=== PATIENT | male | born 1965 | race Caucasian/White ===

== ENCOUNTER 2022-07-13 11:11 | Day surgery (SDC) | payer OTHER ==
[2022-07-13] MEDS ORDERED: Sodium Chloride 0.9(Preservative Free) 10 ML IJ ONE (11:12)
[2022-07-13] MEDS ORDERED: Depo-Medrol 40 MG/ML IM ONE (11:12)
[2022-07-13] MEDS ORDERED: DIPRIVAN 200 MG/20 ML IV ONE (13:58)
[2022-07-13] MEDS ORDERED: Lactated Ringers 1,000 ML IV ONE ×2 (17:02)
--- NOTE | 2022-07-13 19:44 | XRAY ---
Indication: Right L2-L4 transforaminal ARABELLA. Intraoperative fluoroscopy provided for 26 seconds. 4 digital spot submitted for interpretation demonstrates posterior needle tips projecting over the expected right L2 and L3 nerve roots. Small amount of contrast injected for needle tip placement. Correlate with intraoperative findings/report.
--- NOTE | 2022-07-13 20:03 | XRAY ---
26 seconds of fluoroscopy was used in surgery for a right L2-L4 transforaminal ARABELLA.
== END 2022-07-13 14:35 | disposition home or self-care (01) ==
LOC: SDC-PAIN 11:11
PROVIDERS: ATTEND Psychiatry & Neurology Pain Medicine
DX: M54.16 Radiculopathy, lumbar region (principal); Z79.899 Other long term (current) drug therapy
CPT/HCPCS: 64483; 64484; 72100; 77003; J1030; J2704; Q9966

== ENCOUNTER 2022-09-14 12:15 | Day surgery (SDC) | payer BC, OTHER ==
[2022-09-14] MEDS ORDERED: LIDOCAINE HCL 1% 50 MG/5 ML VL PF IJ ONE (12:16)
[2022-09-14] MEDS ORDERED: DIPRIVAN 200 MG/20 ML IV ONE (14:05)
--- NOTE | 2022-09-14 14:35 | XRAY ---
Indication: Left C2-C5 MBB. Intraoperative fluoroscopy provided for 19 seconds. 3 digital spot image submitted for interpretation demonstrates posterior needle tips projecting over the expected left C2-C5 nerve roots. Correlate with intraoperative findings/report. Incidental lower cervical fusion hardware
--- NOTE | 2022-09-14 16:42 | XRAY ---
19 seconds of fluoroscopy was used in surgery for a left C2-C5 MBB.
[2022-09-14] MEDS ORDERED: Lactated Ringers 1,000 ML IV ONE (16:47)
== END 2022-09-14 14:40 | disposition home or self-care (01) ==
LOC: SDC-PAIN 12:15
PROVIDERS: ATTEND Psychiatry & Neurology Pain Medicine
DX: M47.812 Spondylosis without myelopathy or radiculopathy, cervical region (principal); Z79.899 Other long term (current) drug therapy
CPT/HCPCS: 64490; 64491; 64492; 72040; 77002; J2001; J2704

== ENCOUNTER 2022-10-19 11:14 | Day surgery (SDC) | payer BC, OTHER ==
[2022-10-19] MEDS ORDERED: LIDOCAINE HCL 2% 100 MG/5 ML IJ ONE (11:15)
[2022-10-19] MEDS ORDERED: DIPRIVAN 200 MG/20 ML IV ONE (13:08)
[2022-10-19] MEDS ORDERED: Lactated Ringers 1,000 ML IV ONE (13:56)
--- NOTE | 2022-10-19 15:05 | XRAY ---
Indication: Left C2-C5 MBB. Intraoperative fluoroscopy provided for 20 seconds. 2 digital spot image submitted for interpretation demonstrates posterior needle tips projecting over the expected left C2-C5 nerve roots. Correlate with intraoperative findings/report.
--- NOTE | 2022-10-19 15:07 | XRAY ---
20 seconds of fluoroscopy was used in surgery for left C2-C5 MBB.
== END 2022-10-19 13:45 | disposition home or self-care (01) ==
LOC: SDC-PAIN 11:14
PROVIDERS: ATTEND Psychiatry & Neurology Pain Medicine
DX: M47.812 Spondylosis without myelopathy or radiculopathy, cervical region (principal); Z79.899 Other long term (current) drug therapy
CPT/HCPCS: 64490; 64491; 64492; 72040; 77002; J2704

== ENCOUNTER 2022-11-23 10:46 | Day surgery (SDC) | payer BC, OTHER ==
[2022-11-23] MEDS ORDERED: Decadron 4 MG INJ IV ONE (10:47)
[2022-11-23] MEDS ORDERED: BUPIVACAINE 0.5% VIAL IJ ONE (10:47)
[2022-11-23] MEDS ORDERED: LIDOCAINE HCL 1% 50 MG/5 ML VL PF IJ ONE (10:47)
[2022-11-23] MEDS ORDERED: DIPRIVAN 200 MG/20 ML IV ONE (13:00)
--- NOTE | 2022-11-23 15:19 | XRAY ---
Indication: Left C2-C5 RFA. Intraoperative fluoroscopy provided for 28 seconds. 5 digital spot image submitted for interpretation demonstrates posterior needle tips projecting over the expected left C2-C5 nerve roots. Correlate with intraoperative findings/report. Incidental partially visualized lower cervical fusion hardware.
[2022-11-23] MEDS ORDERED: Lactated Ringers 1,000 ML IV ONE (15:42)
--- NOTE | 2022-11-23 17:07 | XRAY ---
28 seconds of fluoroscopy was used in surgery for a left C2-C5 RFA.
== END 2022-11-23 13:40 | disposition home or self-care (01) ==
LOC: SDC-PAIN 10:46
PROVIDERS: ATTEND Psychiatry & Neurology Pain Medicine
DX: M47.812 Spondylosis without myelopathy or radiculopathy, cervical region (principal); Z79.899 Other long term (current) drug therapy
CPT/HCPCS: 64633; 64634; 72040; 77002; J1100; J2001; J2704

== ENCOUNTER 2024-10-09 08:56 | Day surgery (SDC) | payer BC ==
[2024-10-09] MEDS ORDERED: LIDOCAINE HCL 2% 100 MG/5 ML IJ ONE (08:57)
[2024-10-09] MEDS ORDERED: Lactated Ringers 500 ML IV ONE (09:19)
[2024-10-09] MEDS ORDERED: propofoL IV ONE (10:58)
--- NOTE | 2024-10-09 12:21 | XRAY ---
Indication: Right C3-C5 MBB. Intraoperative fluoroscopy provided for 10 seconds. Single lateral digital spot image submitted for interpretation demonstrates posterior needle tips projecting over presumed right C3-C5 nerve roots. Correlate with intraoperative findings/report.
--- NOTE | 2024-10-09 12:27 | XRAY ---
10 seconds of fluoroscopy was used in surgery for a right C3-C5 MBB.
== END 2024-10-09 11:30 | disposition home or self-care (01) ==
LOC: SDC-PAIN 08:56 → EDSTATUS 10:28 → SDC-PAIN 11:30
PROVIDERS: ATTEND Psychiatry & Neurology Pain Medicine
DX: M47.812 Spondylosis without myelopathy or radiculopathy, cervical region (principal)
CPT/HCPCS: 64490; 64491; 72040; 77002; J2704